=== PATIENT | female | born 1940 | race Caucasian/White ===

== ENCOUNTER 2025-03-11 10:15 | Emergency (ER) | payer MEDICARE ==
[2025-03-11 11:11] LABS: #Basophils 0.03 10x3/uL (0.0-0.2); #Eosinophils 0.08 10x3/uL (0.0-0.7); #Monocytes 0.41 10x3/uL (0.11-0.59); #Neutrophils 5.60 10x3/uL (1.40-6.50); %Basophils 0.4 % (0.0-1.0); %Eosinophils 1.1 % (0.0-10.0); %Lymphocytes 16.6 % (21.0-51.0); %Monocytes 5.6 % (0.0-10.0); %Neutrophils 76.2 % (42.0-75.0); Hematocrit 47.5 % (36.0-47.0); Hemoglobin 15.2 g/dL (12.0-16.0); Mean Corpuscular Hemoglobin 29.2 pg (27.0-31.0); Mean Corpuscular Volume 91.2 fL (78.0-98.0); Platelet Count 221 10x3/uL (130-400); Red Blood Cell (RBC) Count 5.21 mill/uL (4.20-5.40); White Blood Cell (WBC) Count 7.35 10x3/uL (4.8-10.8)
[2025-03-11] MEDS ORDERED: Nitroglycerin 2% Ointment 1 INCH/1 GM Packet ONE (11:29)
[2025-03-11 11:42] LABS: ALT (SGPT) 20 U/L (Less than 34); AST (SGOT) 29 U/L (11-34); Albumin 4.1 g/dL (3.1-4.5); Alkaline Phosphatase 106 U/L (40-110); Anion Gap 15 mmol/L (10-20); BUN (Urea Nitrogen) 21 mg/dL (9.8-20.1); Bilirubin, Total 0.4 mg/dL (0.3-1.2); Calc. Creatinine Clearance 0 mL/min (70-130); Calcium 9.7 mg/dL (7.8-10.44); Carbon Dioxide 24 mmol/L (23-31); Chloride 104 mmol/L (98-107); Globulin 3.3 g/dL (2.4-3.5); Glucose 109 mg/dL (83-110); Lipase 43 U/L (8-78); Potassium 4.2 mmol/L (3.5-5.1); Sodium 139 mmol/L (136-145)
[2025-03-11] MEDS ORDERED: Iopamidol-370 76% 500 ML MDV (1 ML CHARGE) ONE (12:10)
[2025-03-11] MEDS ORDERED: Acetaminophen 500 MG TAB ONE (12:52)
[2025-03-11] MEDS ORDERED: Ibuprofen 200 MG TAB ONE (13:10)
== END 2025-03-11 13:17 | disposition home or self-care (01) ==
LOC: ERS 10:15
DX: I10 Essential (primary) hypertension (principal); M17.12 Unilateral primary osteoarthritis, left knee; Z79.82 Long term (current) use of aspirin
CPT/HCPCS: 70496; 70498; 71045; 80053; 83605; 83690; 84484; 85025; 93005